=== PATIENT | male | born 1945 | race Hispanic/Latino ===

== ENCOUNTER 2020-03-20 06:20 | Day surgery (SDC) | payer MEDICARE ==
[2020-03-20] MEDS ORDERED: SODIUM CHLORIDE 0.9% 500 ML 500 ML IV SCH (07:00)
[2020-03-20 07:12] LABS: Hematocrit 40.2 % (35.5-45.6); Hemoglobin 14.4 gm/dl (11.8-15.2); Mean Corpuscular HGB Conc 36 % (32-34); Mean Corpuscular Volume 91 fl (84-94); Platelet Count 209 K/mm3 (140-440); Red Blood Count 4.42 M/mm3 (3.65-5.03); Red Cell Distribution Width 14.9 % (13.2-15.2)
[2020-03-20 07:22] LABS: INR 1.13 (0.87-1.13)
[2020-03-20 07:23] LABS: Partial Thromboplastin Time 33.4 Sec. (24.2-36.6)
[2020-03-20 07:24] LABS: Calcium 9.6 mg/dL (8.4-10.2)
--- NOTE | 2020-03-20 07:47 | Anesthesia Consultation ---
Anesthesia Consult and Med Hx Date of service: 03/20/20 - Airway Anesthetic Teeth Evaluation: Poor (loose tooth #8, multiple broken and missing teeth) ROM Head & Neck: Adequate Mental/Hyoid Distance: Inadequate Mallampati Class: Class II Intubation Access Assessment: Possibly Difficult - Pulmonary Exam CTA: Yes - Cardiac Exam Cardiac Exam: No Murmur (irregular rhythm) - Pre-Operative Health Status ASA Pre-Surgery Classification: ASA3 Proposed Anesthetic Plan: MAC - Pulmonary Hx Smoking: Yes (former smoker) Hx Respiratory Symptoms: No Hx Sleep Apnea: No - Cardiovascular System Hx Hypertension: Yes Hx Heart Attack/AMI: No Hx Percutaneous Transluminal Coronary Angioplasty (PTCA): No Hx Cardia Arrhythmia: Yes (a-fib) Hx Pacemaker: No Hx Internal Defibrillator: No - Central Nervous System CVA: No Hx Psychiatric Problems: No - Gastrointestinal Hx Gastroesophageal Reflux Disease: No - Endocrine Hx Renal Disease: Yes (?CKD) Hx Liver Disease: No Hx Insulin Dependent Diabetes: No Hx Non-Insulin Dependent Diabetes: No Hx Hypothyroidism: Yes - Hematic Hx Anemia: No - Other Systems Hx Obesity: No - Additional Comments Anesthesia Medical History Comments: No hx anesthetic complications. EF 50-55% on TTE 01/2020. Scheduled for DCCV for a-fib.
--- NOTE | 2020-03-20 07:47 | Anesthesia Day of Surgery ---
Anesthesia Day of Surgery - Day of Surgery Patient Examined: Yes Patient H&P Reviewed: Yes Patient is NPO: Yes
[2020-03-20] MEDS ORDERED: MIDAZOLAM 2 MG/2 ML INJ ONE (08:49)
[2020-03-20] MEDS ORDERED: propofoL 200 MG/20 ML VIAL IV ONE (08:51)
[2020-03-20 11:24] VITALS: BP 147/83
--- NOTE | 2020-03-20 11:57 | Cardiac Catherization Report ---
ELECTRICAL CARDIOVERSION REFERRING PHYSICIAN: Sohail Pineda MD INDICATION FOR PROCEDURE: The patient is a very pleasant 74-year-old gentleman with a history of atrial fibrillation with rapid ventricular response, diagnosed several months ago, has been in AFib since then, has been on uninterrupted systemic anticoagulation for greater than 2 months. Workup in the office is reviewed. He is here for elective cardioversion. Risks and benefits, alternatives discussed. Anesthesia is at bedside. Once adequate anesthesia was obtained, we performed electrical cardioversion with 150 biphasic joules with successful resumption of sinus rhythm. There were no immediate complications. Anesthesia is to recover the patient, no complications. CONCLUSIONS: Successful electrical cardioversion of atrial fibrillation with resumption of sinus rhythm without evident complication. Continue systemic anticoagulation. Follow up with me in the office. JOB# [id number] CHRISTOPH/FUAD
--- NOTE | 2020-03-20 15:48 | Post Anesthesia Evaluation ---
- Post Anesthesia Evaluation Patient Participated: Yes Airway Patent: Yes Stable Respiratory Function: Yes Nausea/Vomiting: No Temp > 96.8F: Yes Pain Manageable: Yes Adequeate Hydration: Yes Anesthesia Complications: No
== END 2020-03-20 11:02 | disposition home or self-care (01) ==
LOC: CATHLABREC 06:20
PROVIDERS: ATTEND Anesthesiology
DX: I48.91 Unspecified atrial fibrillation (principal); M19.90 Unspecified osteoarthritis, unspecified site; I42.9 Cardiomyopathy, unspecified; I10 Essential (primary) hypertension; E03.9 Hypothyroidism, unspecified; Z87.891 Personal history of nicotine dependence; Z98.890 Other specified postprocedural states; Z79.899 Other long term (current) drug therapy
CPT/HCPCS: 36415; 80048; 85027; 85610; 85730; 92960; 93005; J2250; J2704; J7040